=== PATIENT | female | born 1955 | race Caucasian/White ===

== ENCOUNTER 2018-11-06 09:11 | Emergency (ER) | payer MEDICAID, SELFPAY | END 2018-11-06 10:12 | disposition home or self-care (01) | LOC: ERS 09:11 | DX: Z76.0 Encounter for issue of repeat prescription (principal); J44.9 Chronic obstructive pulmonary disease, unspecified; F41.9 Anxiety disorder, unspecified; F31.9 Bipolar disorder, unspecified | CPT/HCPCS: 99281 ==